=== PATIENT | female | born 1975 | race Caucasian/White ===

== ENCOUNTER 2018-01-07 00:50 | Emergency (ER) | payer BC ==
[2018-01-07 00:50] VITALS: BMI 30.6
--- NOTE | 2018-01-07 00:53 | C.PDOC ---
History Of Present Illness Patient presents to the ER with a complaint of nausea, vomiting, and abdominal pain that began tonight. Patient reports she had rice, beans, and eggs for dinner prior to onset of symptoms. Denies fever or diarrhea. Time Seen by Provider: 01/07/18 00:52 Chief Complaint (Nursing): GI Problem History Per: Patient History/Exam Limitations: no limitations Onset/Duration Of Symptoms: Days Current Symptoms Are (Timing): Still Present Severity: Moderate Pain Scale Rating Of: 4 Location Of Pain/Discomfort: Epigastric Radiation Of Pain To:: None Quality Of Discomfort: Unable To Describe Associated Symptoms: Nausea, Vomiting. denies: Diarrhea Exacerbating Factors: None Alleviating Factors: None Recent travel outside of the [place]: No Abnormal Vaginal Bleeding: No Past Medical History Reviewed: Historical Data, Nursing Documentation, Vital Signs Vital Signs: Last Vital Signs Temp 98.5 F 01/07/18 00:53 Pulse 76 01/07/18 02:12 Resp 18 01/07/18 02:12 BP 126/78 01/07/18 02:12 Pulse Ox 98 01/07/18 02:12 - Medical History PMH: Back Problems (chronic right mid back pain ), HTN - [facility] Procedures INDIVID PSYCHOTHERAP NEC (06/29/13) INJECT/INFUSE NEC (11/13/13) Family History: States: No Known Family Hx - Social History Hx Tobacco Use: No Hx Alcohol Use: No Hx Substance Use: No - Immunization History Hx Tetanus Toxoid Vaccination: No Hx Influenza Vaccination: Yes Hx Pneumococcal Vaccination: No Review Of Systems Constitutional: Negative for: Fever, Chills Cardiovascular: Negative for: Chest Pain Respiratory: Negative for: Cough Gastrointestinal: Positive for: Nausea, Vomiting, Abdominal Pain. Negative for : Diarrhea Physical Exam - Physical Exam Appears: Non-toxic Skin: Warm, Dry Head: Normacephalic Oral Mucosa: Moist Chest: Symmetrical, No Tenderness Cardiovascular: Rhythm Regular Respiratory: No Rales, No Rhonchi, No Wheezing Gastrointestinal/Abdominal: Soft, Tenderness (Mild mid epigastric), No Guarding , No Rebound Neurological/Psych: Oriented x3 ED Course And Treatment - Laboratory Results Result Diagrams: 01/07/18 01:23 01/07/18 01:23 O2 Sat by Pulse Oximetry: 98 Pulse Ox Interpretation: Normal Progress Note: Blood work and urinalysis ordered. IV fluids and zofran administered. Reevaluation Time: 02:31 Reassessment Condition: Improved Disposition Counseled Patient/Family Regarding: Studies Performed, Diagnosis, Need For Followup, Rx Given - Disposition Referrals: Vinayak De Jesus MD [Medical Doctor] - Disposition: HOME/ ROUTINE Disposition Time: 00:53 Condition: FAIR Prescriptions: Ondansetron ODT [Zofran ODT] 1 odt PO BID PRN #6 odt PRN Reason: Nausea/Vomiting Instructions: Nausea and Vomiting, Adult (DC), Food Poisoning (DC) Forms: [employer] (Fijian) Print Language: SALVADOREAN - Clinical Impression Clinical Impression: Nausea & vomiting, Food poisoning - Scribe Statement The provider has reviewed the documentation as recorded by the Scribmina Sanders All medical record entries made by the Scribe were at my direction and personally dictated by me. I have reviewed the chart and agree that the record accurately reflects my personal performance of the history, physical exam, medical decision making, and the department course for this patient. I have also personally directed, reviewed, and agree with the discharge instructions and disposition.
[2018-01-07 00:57] VITALS: RESP 18
[2018-01-07] MEDS ORDERED: Sodium Chloride 0.9% 1,000 ML IV ONE (00:59)
[2018-01-07] MEDS ORDERED: Sodium Chloride 0.9% 1,000 ML ONE (01:10)
[2018-01-07 01:28] LABS: BASO % 0.3 % (0.0-2.0); EOS # 0.1 K/uL (0.0-0.7); EOS % 1.3 % (0.0-4.0); HEMOGLOBIN 14.3 g/dL (11.0-16.0); LYMPH # 0.9 K/uL (1.0-4.3); LYMPH % 11.1 % (20.0-40.0); MEAN CELL VOLUME 87.6 fL (81.0-99.0); MEAN CORPUSCULAR HEMOGLOBIN 30.6 pg (27.0-31.0); MEAN PLATELET VOLUME 7.4 fL (7.2-11.7); MONO # 0.4 K/uL (0.0-0.8); MONO % 5.5 % (0.0-10.0); NEUT # 6.5 K/uL (1.8-7.0); NEUT % 81.8 % (50.0-75.0); RBC 4.67 Mil/uL (3.80-5.20); RED CELL DISTRIBUTION WIDTH 13.5 % (11.5-14.5)
[2018-01-07 01:35] LABS: SQUAMOUS EPITHIAL 1 /hpf (0-5); URINE BILIRUBIN NEGATIVE (NEGATIVE); URINE BLOOD NEGATIVE (NEGATIVE); URINE CLARITY Clear (Clear); URINE COLOR Yellow (YELLOW); URINE GLUCOSE (UA) NORMAL (Normal); URINE LEUKOCYTE ESTERASE NEG Leu/uL (Negative); URINE PROTEIN NEGATIVE (NEGATIVE); URINE UROBILINOGEN NORMAL mg/dL (0.2-1.0)
[2018-01-07 01:38] LABS: ALB/GLOB RATIO 1.1 (1.0-2.1); ALBUMIN 3.7 g/dL (3.5-5.0); ALT/SGPT 24 U/L (9-52); AST/SGOT 20 U/L (14-36); BLOOD UREA NITROGEN 10 mg/dL (7-17); CALCIUM 8.4 mg/dl (8.6-10.4); GFR AFRICAN-AMERICAN > 60; GFR NON-AFRICAN AMERICAN > 60; LIPASE 70 U/L (23-300)
[2018-01-07 01:42] LABS: INR 1.3; PROTHROMBIN TIME 14.3 SECONDS (9.7-12.2)
[2018-01-07 01:42] LABS: HCG,QUALITATIVE URINE NEGATIVE (NEGATIVE)
[2018-01-07 02:37] VITALS: BP 128/76; PULSE 78; TEMP 99.2; O2SAT 99
== END 2018-01-07 02:42 | disposition home or self-care (01) ==
LOC: C.ER 00:50
DX: T62.91XA Toxic effect of unspecified noxious substance eaten as food, accidental (unintentional), initial encounter (principal); R11.2 Nausea with vomiting, unspecified
CPT/HCPCS: 80053; 81001; 83690; 84703; 85025; 85610; 85730; 96374; 99285; J2405; J7040

== ENCOUNTER 2018-08-07 16:33 | Emergency (ER) | payer BC ==
[2018-08-07 16:38] VITALS: BMI 32.9
[2018-08-07 16:41] VITALS: BP 157/82; PULSE 70; RESP 18; TEMP 98.3; O2SAT 97
--- NOTE | 2018-08-07 17:20 | C.PDOC ---
History Of Present Illness 43 year old female presents to ED complaining of a non-traumatic pain to her left lower leg, more on the lateral side, for the past 4 days. Patient has had no similar pain from the past. Patient states she took a flight at the beginning of last month and is not on control. States she did not take anything for pain today. Time Seen by Provider: 08/07/18 16:47 Chief Complaint (Nursing): Lower Extremity Problem/Injury History Per: Patient History/Exam Limitations: no limitations Onset/Duration Of Symptoms: Days Current Symptoms Are (Timing): Still Present Past Medical History Reviewed: Historical Data, Nursing Documentation, Vital Signs Vital Signs: Last Vital Signs Temp 98.3 F 08/07/18 16:38 Pulse 70 08/07/18 16:38 Resp 18 08/07/18 16:38 BP 157/82 H 08/07/18 16:38 Pulse Ox 97 08/07/18 16:38 - Medical History PMH: Asthma, Back Problems (chronic right mid back pain ), HTN Surgical History: Appendectomy - [facility] Procedures INDIVID PSYCHOTHERAP NEC (06/29/13) INJECT/INFUSE NEC (11/13/13) Family History: States: No Known Family Hx - Social History Hx Tobacco Use: No Hx Alcohol Use: No Hx Substance Use: No - Immunization History Hx Tetanus Toxoid Vaccination: No Hx Influenza Vaccination: No Hx Pneumococcal Vaccination: No Review Of Systems Except As Marked, All Systems Reviewed And Found Negative. Musculoskeletal: Positive for: Leg Pain (lower left) Neurological: Negative for: Weakness, Numbness Physical Exam - Physical Exam Appears: Non-toxic, No Acute Distress Skin: Warm, Dry Head: Atraumatic, Normacephalic Eye(s): bilateral: Normal Inspection Oral Mucosa: Moist Neck: Supple Chest: Symmetrical Cardiovascular: Rhythm Regular, No Murmur Respiratory: Normal Breath Sounds, No Rales, No Rhonchi, No Wheezing Gastrointestinal/Abdominal: Normal Exam Extremity: Other (No significant swelling but has pain to palpation of her left posterior leg and left lateral lower leg) Extremity: Bilateral: Normal Color And Temperature, Normal ROM Neurological/Psych: Oriented x3, Normal Speech, Normal Motor, Normal Sensation ED Course And Treatment O2 Sat by Pulse Oximetry: 97 (RA) Pulse Ox Interpretation: Normal - Other Rad Left tib fib xray X-Ray: Interpreted by Me Interpretation: no acute fx or dislocation. small calcification Medical Decision Making Medical Decision Making: Plan: --D-dimer --Ibuprofen -xray Disposition Counseled Patient/Family Regarding: Studies Performed, Diagnosis, Need For Followup, Rx Given - Disposition Referrals: Vinayak De Jesus MD [Medical Doctor] - Disposition: HOME/ ROUTINE Disposition Time: 18:01 Condition: STABLE Additional Instructions: FOLLOW UP WITH YOUR PMD TOMORROW FOR RE-EVALUATION AND OFFICIAL XRAY REPORT. IF SYMPTOMS GET WORSE OR ANY NEW CONCERNING SYMPTOMS DEVELOP RETURN TO ED. 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 - Scribe Statement The provider has reviewed the documentation as recorded by the Scribmina Monique All medical record entries made by the Constanzaibmina were at my direction and personally dictated by me. I have reviewed the chart and agree that the record accurately reflects my personal performance of the history, physical exam, medical decision making, and the department course for this patient. I have also personally directed, reviewed, and agree with the discharge instructions and disposition.
--- NOTE | 2018-08-08 09:36 | RAD ---
Date of service: 08/07/2018 PROCEDURE: Radiographs of the left tibia and fibula. HISTORY: Pain COMPARISON: None available. TECHNIQUE: Frontal and lateral views obtained. FINDINGS: BONES: Bone alignment and mineralization are normal. There is no acute displaced fracture or bone destruction. JOINT SPACES: Unremarkable. OTHER FINDINGS: None. IMPRESSION: No acute fracture or dislocation.
== END 2018-08-07 18:24 | disposition home or self-care (01) ==
LOC: C.ER 16:33
DX: M79.605 Pain in left leg (principal); I10 Essential (primary) hypertension